=== PATIENT | female | born 1945 | race Caucasian/White ===

== ENCOUNTER 2017-08-05 22:58 | Inpatient (IN) | payer OTHER, MEDICARE ==
[~2017-08-05] VITALS: Ht 165.1 cm; Wt 78.0 kg
[~2017-08-05 22:58] MED LIST: ADVAIR 100-501 EACH INH; AMLODIPINE BESYL5 MG PO; ASPIR 8181 MG PO; BENICAR20 MG PO; CETIRIZINE HCL5 MG PO; CLOPIDOGREL75 MG PO; COMBIVENT RESPIM4 GM IH; ESIDRIX25 MG PO; LEVOTHYROXINE50 MCG PO; METHYLPREDNISOLO4 M1; METOPROLOL SUCC50 MG PO; METOPROLOL TART25 MG PO; PLAVIX75 MG PO; PROAIR HFA INH8.5 GM; XANAX0.25 MG PO
[2017-08-06] MEDS ORDERED: PANTOPRAZOLE 40 MG 10ML VIAL IV STA (00:48)
[2017-08-06] MEDS ORDERED: SODIUM CHLORIDE 0.9% 1000ML 1,000 ML IV STA (00:48)
[2017-08-06] MEDS ORDERED: ONDANSETRON HCL INJ 2 MG/ML VIAL IV STA ×2 (00:48→03:25)
[2017-08-06] MEDS ORDERED: DIATRIZOATE MEGL/DIATRIZOA SOD 30 ML BTL PO ONE (01:01)
[2017-08-06 01:02] LABS: BILIRUBIN,URINE NEGATIVE (NEGATIVE); KETONES,URINE NEGATIVE (NEGATIVE); LEUKOCYTE ESTERASE ,URINE 1+ (NEGATIVE); NITRITE,URINE NEGATIVE (NEGATIVE); PROTEIN,URINE DIPSTICK NEGATIVE (NEGATIVE); URINE UROBILINOGEN 0.2 mg/dL (0.2 - 1)
[2017-08-06 01:03] LABS: CLARITY,URINE CLEAR (CLEAR); COLOR,URINE YELLOW (YELLOW)
[2017-08-06] MEDS ORDERED: ALBUTEROL SULF 0.083% NEB SOLN 3 ML NEB NEB STA (01:22)
[2017-08-06 01:24] LABS: EOSINOPHILS % 0.1 % (0.0-6.0); HEMATOCRIT 29.2 % (34.2-44.1); HEMOGLOBIN 9.7 g/dL (12.0-16.0); LYMPHOCYTES # (AUTO) 0.7 (1.0-3.2); LYMPHOCYTES % 8.6 % (18.0-39.1); MEAN CORPUSCULAR HEMOGLOBIN 23.7 pg (28-32); MEAN CORPUSCULAR HGB CONC 33.2 g/dL (31-35); MEAN CORPUSCULAR VOLUME 71.4 fL (81-99); MONOCYTES # (AUTO) 1.1 (0.2-0.8); MONOCYTES % 13.3 % (4.4-11.3); NEUTROPHILS # (AUTO) 6.6 (2.1-6.9); NEUTROPHILS % 77.5 % (38.7-80.0); PLATELET COUNT 148 x10e3/uL (140-360); RED BLOOD COUNT 4.09 x10e6/uL (3.6-5.1); RED CELL DISTRIBUTION WIDTH 14.6 % (11.7-14.4)
[2017-08-06 01:26] LABS: BACTERIA,URINE RARE /HPF; EPITHELIAL CELLS,URINE MODERATE /LPF; RBC,URINE 0-5 /HPF (0-5)
[2017-08-06] MEDS ORDERED: ALBUTEROL/IPRATROPIUM 3 ML NEB NEB ONE (01:30)
[2017-08-06] MEDS ORDERED: IPRATROPIUM BROMIDE 0.02% 2.5 ML NEB NEB ONE ×2 (01:30)
[2017-08-06 01:43] LABS: INR 0.79; PROTHROMBIN TIME 11.4 seconds (11.9-14.5)
[2017-08-06 01:44] LABS: PARTIAL THROMBOPLASTIN TIME 27.2 seconds (23.8-35.5)
[2017-08-06 01:51] LABS: ALBUMIN 3.4 g/dL (3.5-5.0); ALBUMIN/GLOBULIN RATIO 1.1 (0.8-2.0); CALCIUM 7.3 mg/dL (8.4-10.2); CHOL/HDL RATIO 2.9 (3.0-3.6)
[2017-08-06 02:07] LABS: CREATININE, SERUM 1.64 mg/dL (0.57-1.11); MAGNESIUM 1.7 MG/DL (1.3-2.1); POTASSIUM 3.7 mmol/L (3.5-5.1)
[2017-08-06 02:09] LABS: ANION GAP 14.7 mmol/L (8-16)
[2017-08-06 02:10] LABS: CREATINE KINASE MB 1.2 ng/mL (0.00-5.00); THYROID STIMULATING HORMONE 1.157 uIU/mL (0.350-4.940); TROPONIN I 0.007 ng/mL (0-0.300)
--- NOTE | 2017-08-06 02:56 | Diagnostic Imaging Report ---
EXAM: CT ABDOMEN AND PELVIS without IV CONTRAST DATE: 08/06/2017 12:48 AM Time stamp on Exam: 0232 hours INDICATION: Abdominal pain, diarrhea COMPARISON: None TECHNIQUE: The abdomen and pelvis were scanned using a multidetector helical scanner. Coronal and sagittal reformations were obtained. Routine protocol performed. IV Contrast: None Oral Contrast: None CTDIvol has been reviewed. It is below the limits set by the Radiation Protocol Committee (RPC). FINDINGS: LOWER THORAX: There are a few nonspecific 2 to 3 mm nodules in the right lung base. LIVER: No masses BILIARY: The gallbladder is unremarkable. No ductal dilation. SPLEEN: No masses PANCREAS: No masses ADRENALS: No nodules KIDNEYS: No nephroureterolithiasis or hydronephrosis. Bilateral lobulated renal contours. GI TRACT: No distention, wall thickening or evidence of obstruction. Normal appendix. Small sliding hiatal hernia. VESSELS: Mild atherosclerotic changes without aneurysm. PERITONEUM/RETROPERITONEUM: No free air or fluid LYMPH NODES: No lymphadenopathy REPRODUCTIVE ORGANS: Nonspecific 5 cm right adnexal cyst. BLADDER: Moderately distended. SOFT TISSUES: Small fat-containing umbilical hernia. Bilateral calcified injection granulomas. BONES: No suspicious bone lesions. IMPRESSION: Moderately distended bladder. Incidental 5 cm right ovarian cyst. A nonemergent gynecology consult is recommended for follow-up. Signed by: Dr. Delaney Kramer M.D. on 08/06/2017 2:52 AM
[2017-08-06 03:42] LABS: OCCULT BLOOD STOOL NEGATIVE (NEGATIVE)
[2017-08-06] MEDS: SODIUM CHLORIDE 0.9% 1000ML 1,000 ML IV SCH ×2 (03:55→13:30)
[2017-08-06] MEDS ORDERED: ONDANSETRON HCL INJ 2 MG/ML VIAL IV PRN (04:30)
[2017-08-06] MEDS: ALBUTEROL SULF 0.083% NEB SOLN 3 ML NEB NEB SCH ×2 (05:15→07:40)
[2017-08-06] MEDS: IPRATROPIUM BROMIDE 0.02% 2.5 ML NEB NEB SCH ×2 (05:15→07:40)
[2017-08-06 06:10] VITALS: BP 132/67
[2017-08-06 07:23] VITALS: BP 132/67
[2017-08-06 07:50] VITALS: BP 132/66
[2017-08-06] MEDS ORDERED: ALPRAZOLAM 0.25 MG TAB PO PRN (08:15)
[2017-08-06] MEDS: ASPIRIN 81 MG CHEW TAB PO SCH (08:41)
[2017-08-06] MEDS: METOPROLOL TARTRATE 25 MG TAB PO SCH ×2 (08:41→18:36)
[2017-08-06] MEDS: AMLODIPINE BESYLATE 5 MG TAB PO SCH (08:42)
[2017-08-06] MEDS: LEVOTHYROXINE SODIUM 50 MCG TAB PO SCH (08:42)
[2017-08-06] MEDS: CLOPIDOGREL BISULFATE 75 MG TAB PO SCH (08:42)
--- NOTE | 2017-08-06 08:55 | History and Physical ---
This 71-year-old female comes in with diarrhea. HISTORY OF PRESENT ILLNESS: Ms. Reema Paulino has a history of diarrhea for the last 3 weeks. The patient has a history of COPD, TIA, asthma, hypothyroidism. She comes in with diarrhea for 3 weeks. The patient was recently diagnosed with pancreatitis initially and was given Flagyl. Since then, the patient has been having diarrhea. She has been admitted about 2 times, the last time to another hospital where she was given fluids. The diarrhea stopped, and the patient came out. Once she was out and started eating normally, the patient started with cramping and diarrhea again. Right now, the patient is weak and tired and came in for continuous diarrhea. PAST MEDICAL HISTORY 1. History of hypertension. 2. History of anxiety. 3. History of allergies. 4. History of PAD. 5. History of hypothyroidism. 6. History of COPD. MEDICATIONS: She takes at home: 1. ProAir inhaler q.6 h. 2. Alprazolam 25 as needed. 3. Amlodipine 5 mg daily. 4. Aspirin 81 mg daily. 5. Cetirizine 5 mg daily. 6. 75 mg daily. 7. Advair 1 inhalation b.i.d. 8. 25 mg. 9. Combivent as needed. 10. Levothyroxine 50 mcg daily. 11. Metoprolol 25 mg twice a day. SURGICAL HISTORY: History of lung biopsies and colonoscopies, otherwise no operations. FAMILY HISTORY: Congestive heart failure and diabetes mellitus. ALLERGIES: SEE NURSE'S NOTE. REVIEW OF SYSTEMS: Negative for chest pain. Positive for shortness of breath. Positive for nausea and vomiting. Positive for diarrhea. No constipation, rectal bleeding, hematochezia. No hematemesis either. No diplopia. No blurry vision. Positive for weakness. PHYSICAL EXAMINATION GENERAL: The patient is alert and oriented times 3. Wheezing with the use of inspiratory muscles. VITALS: Temperature 96.2, pulse 75, respirations 21, blood pressure 132/66, pulse oximetry 100% on room air at this time. CVS: S1 and S2 normal, distant heart sounds. LUNGS: Positive for decreased air entry into all lung amaro. Positive for inspiratory wheezes. ABDOMEN: Distended. EXTREMITIES: No clubbing. No cyanosis. No edema. LABORATORY VALUES: White count 8.5, hemoglobin 9.7, hematocrit 29.2. Chemistry: Sodium 121, BUN 18, creatinine 1.67, calcium 7.3, albumin 3.4, LDL 51, cholesterol HDL 2.9. TSH is 1.57. CT of the abdomen shows incidental, 5 cm, right ovarian cyst. Otherwise, moderately distended bladder. ASSESSMENT 1. Chronic diarrhea. 2. Patient has what looks like urinary retention. Will put a urinary catheter in there. 3. Patient also has chronic obstructive pulmonary disease. We will start her on treatments. 4. Chronic diarrhea, which she came in with. We will start the patient on some Carafate and also do stool cultures. Start on a clear liquid diet. 5. Acute kidney injury from chronic diarrhea. Hydration. 6. Patient also has anemia. Will check her iron levels, too. Further recommendations per the clinical course. We will continue to monitor the patient. Job#: [id number]
[2017-08-06] MEDS: SALMETEROL/FLUTICASONE 100/50 INH SCH ×2 (09:00→19:54)
[2017-08-06 10:49] LABS: ALBUMIN 3.2 g/dL (3.5-5.0); ANION GAP 10.4 mmol/L (8-16); CREATININE, SERUM 1.55 mg/dL (0.57-1.11); POTASSIUM 3.4 mmol/L (3.5-5.1)
[2017-08-06] MEDS: SUCRALFATE 1 GM TAB PO SCH ×3 (11:30→21:00)
[2017-08-06 11:46] VITALS: BP 121/61
[2017-08-06] MEDS: ALBUTEROL/IPRATROPIUM 3 ML NEB NEB SCH ×3 (11:55→22:35)
[2017-08-06 16:14] VITALS: BP 130/64
[2017-08-06 20:00] VITALS: BP 142/63
[2017-08-07] VITALS: BP 111/53
[2017-08-07] MEDS: ALBUTEROL/IPRATROPIUM 3 ML NEB NEB SCH ×6 (02:59→23:00)
[2017-08-07] MEDS: SODIUM CHLORIDE 0.9% 1000ML 1,000 ML IV SCH ×2 (03:47→08:17)
[2017-08-07 06:18] VITALS: BP 100/49
[2017-08-07 08:04] VITALS: BP 114/63
[2017-08-07] MEDS: CLOPIDOGREL BISULFATE 75 MG TAB PO SCH (08:16)
[2017-08-07] MEDS: LEVOTHYROXINE SODIUM 50 MCG TAB PO SCH (08:16)
[2017-08-07] MEDS: ASPIRIN 81 MG CHEW TAB PO SCH (08:16)
[2017-08-07] MEDS: LACTOBACILLUS ACIDOPHILUS CAPSULE PO SCH ×2 (08:16→16:23)
[2017-08-07] MEDS: SUCRALFATE 1 GM TAB PO SCH ×4 (08:16→20:44)
[2017-08-07] MEDS: AMLODIPINE BESYLATE 5 MG TAB PO SCH (08:16)
[2017-08-07 08:32] LABS: HEMATOCRIT 27.6 % (34.2-44.1); LYMPHOCYTES # (AUTO) 0.5 (1.0-3.2); LYMPHOCYTES % 8.6 % (18.0-39.1); MEAN CORPUSCULAR HEMOGLOBIN 24.5 pg (28-32); MEAN CORPUSCULAR HGB CONC 32.6 g/dL (31-35); MONOCYTES # (AUTO) 0.6 (0.2-0.8); MONOCYTES % 11.5 % (4.4-11.3); NEUTROPHILS # (AUTO) 4.2 (2.1-6.9); NEUTROPHILS % 79.3 % (38.7-80.0); PLATELET COUNT 137 x10e3/uL (140-360); RED BLOOD COUNT 3.67 x10e6/uL (3.6-5.1); RED CELL DISTRIBUTION WIDTH 14.8 % (11.7-14.4)
[2017-08-07 08:34] LABS: MEAN CORPUSCULAR VOLUME 75.2 fL (81-99)
[2017-08-07] MEDS: METOPROLOL TARTRATE 25 MG TAB PO SCH ×2 (08:34→16:21)
[2017-08-07 08:49] LABS: CALCIUM 7.3 mg/dL (8.4-10.2); CREATININE, SERUM 1.55 mg/dL (0.57-1.11)
[2017-08-07] MEDS: SALMETEROL/FLUTICASONE 100/50 INH SCH ×2 (09:05→19:24)
[2017-08-07 09:14] LABS: % IRON SATURATION 5 % (15-50); IRON 18 ug/dL (50-170); TOTAL IRON BINDING CAPACITY 337 ug/dL (261-478); TRANSFERRIN 241 mg/dL (180-382)
[2017-08-07 16:04] VITALS: BP 99/49
[2017-08-07 20:00] VITALS: BP 134/63
[2017-08-07] MEDS ORDERED: PEG (High)/E-LYTE SOLN 4,000 ML BTL PO ONE (20:00)
[2017-08-08] VITALS: BP 111/54
[2017-08-08] MEDS ORDERED: CITRATE OF MAGNESIA 300ML BOTTLE PO ONE (02:15)
[2017-08-08] MEDS: ALBUTEROL/IPRATROPIUM 3 ML NEB NEB SCH ×6 (02:38→22:10)
[2017-08-08] MEDS: SODIUM CHLORIDE 0.9% 1000ML 1,000 ML IV SCH ×3 (03:00→14:08)
[2017-08-08 04:09] VITALS: BP 125/59
[2017-08-08 07:16] LABS: HEMATOCRIT 24.6 % (34.2-44.1); LYMPHOCYTES # (AUTO) 0.5 (1.0-3.2); LYMPHOCYTES % 20.4 % (18.0-39.1); MEAN CORPUSCULAR HEMOGLOBIN 24.2 pg (28-32); MEAN CORPUSCULAR HGB CONC 32.5 g/dL (31-35); MEAN CORPUSCULAR VOLUME 74.5 fL (81-99); MONOCYTES # (AUTO) 0.4 (0.2-0.8); MONOCYTES % 19.5 % (4.4-11.3); NEUTROPHILS # (AUTO) 1.4 (2.1-6.9); NEUTROPHILS % 59.7 % (38.7-80.0); PLATELET COUNT 104 x10e3/uL (140-360); RED CELL DISTRIBUTION WIDTH 15.2 % (11.7-14.4)
[2017-08-08] MEDS: SUCRALFATE 1 GM TAB PO SCH ×4 (07:30→21:06)
[2017-08-08] MEDS: SALMETEROL/FLUTICASONE 100/50 INH SCH ×2 (07:40→19:53)
[2017-08-08 07:54] LABS: ANION GAP 12.5 mmol/L (8-16); CALCIUM 7.5 mg/dL (8.4-10.2); CREATININE, SERUM 1.29 mg/dL (0.57-1.11); POTASSIUM 3.5 mmol/L (3.5-5.1)
[2017-08-08 08:27] VITALS: BP 127/62
[2017-08-08] MEDS: LEVOTHYROXINE SODIUM 50 MCG TAB PO SCH (09:00)
[2017-08-08] MEDS: LACTOBACILLUS ACIDOPHILUS CAPSULE PO SCH ×2 (09:00→17:33)
[2017-08-08] MEDS: ASPIRIN 81 MG CHEW TAB PO SCH (09:00)
[2017-08-08] MEDS: CLOPIDOGREL BISULFATE 75 MG TAB PO SCH (09:00)
[2017-08-08] MEDS: AMLODIPINE BESYLATE 5 MG TAB PO SCH (09:12)
[2017-08-08] MEDS: METOPROLOL TARTRATE 25 MG TAB PO SCH ×2 (09:12→17:43)
[2017-08-08 12:25] VITALS: BP 108/76
[2017-08-08 13:31] LABS: C DIFFICILE TOXIN A&B AMP PROB NEGATIVE (NEGATIVE)
[2017-08-08] MEDS ORDERED: PROPOFOL IV EMULSION 10 MG/ML 50 ML VIAL ONE (18:48)
[2017-08-08] MEDS ORDERED: LIDOCAINE HCL 2% LOCAL INJ 5 ML SDV VIAL INJ ONE (18:48)
[2017-08-08] MEDS ORDERED: HYOSCYAMINE SULFATE 0.5 MG/ML AMP ONE (18:48)
[2017-08-08] MEDS ORDERED: FENTANYL CITRATE/PF 100MCG/2 ML INJ ONE (19:15)
[2017-08-08 19:30] VITALS: BP 113/61
[2017-08-08] MEDS: DICYCLOMINE HCL 10 MG CAP PO SCH (21:06)
[2017-08-09 00:25] VITALS: BP 143/67
[2017-08-09] MEDS: ALBUTEROL/IPRATROPIUM 3 ML NEB NEB SCH ×5 (01:15→15:50)
[2017-08-09] MEDS: SODIUM CHLORIDE 0.9% 1000ML 1,000 ML IV SCH ×2 (02:10→10:02)
[2017-08-09 04:20] VITALS: BP 149/64
[2017-08-09] MEDS: SALMETEROL/FLUTICASONE 100/50 INH SCH (06:55)
[2017-08-09 07:25] LABS: HEMATOCRIT 23.7 % (34.2-44.1); LYMPHOCYTES # (AUTO) 0.4 (1.0-3.2); LYMPHOCYTES % 19.8 % (18.0-39.1); MEAN CORPUSCULAR HEMOGLOBIN 24.8 pg (28-32); MEAN CORPUSCULAR HGB CONC 32.1 g/dL (31-35); MEAN CORPUSCULAR VOLUME 77.2 fL (81-99); MONOCYTES # (AUTO) 0.2 (0.2-0.8); MONOCYTES % 11.2 % (4.4-11.3); NEUTROPHILS # (AUTO) 1.4 (2.1-6.9); NEUTROPHILS % 68.5 % (38.7-80.0); PLATELET COUNT 87 x10e3/uL (140-360); RED BLOOD COUNT 3.07 x10e6/uL (3.6-5.1); RED CELL DISTRIBUTION WIDTH 15.5 % (11.7-14.4)
[2017-08-09 07:40] LABS: HEMOGLOBIN 7.6 g/dL (12.0-16.0)
[2017-08-09 07:50] LABS: ANION GAP 8.8 mmol/L (8-16); CALCIUM 7.4 mg/dL (8.4-10.2); CREATININE, SERUM 1.06 mg/dL (0.57-1.11); POTASSIUM 3.8 mmol/L (3.5-5.1)
[2017-08-09 07:55] VITALS: BP 141/69
[2017-08-09] MEDS ORDERED: IRON SUCROSE 100 MG in SODIUM CHLORIDE 0.9% 100 ML 100 ML IV SCH ×2 (08:15→08:30)
[2017-08-09 08:35] LABS: LYMPHOCYTES % (MANUAL) 12 % (19-48); MONOCYTES % (MANUAL) 16 % (3.4-9.0); NEUTROPHILS % (MANUAL) 68 % (40-74)
[2017-08-09 08:36] LABS: ANISOCYTOSIS SLIGHT; HYPOCHROMASIA SLIGHT; PLATELET ESTIMATE MARKEDLY DECREASED; PLATELET MORPHOLOGY COMMENT FEW LARGE; RBC MORPHOLOGY COMMENT NORMAL
[2017-08-09] MEDS ORDERED: POLYSACCARIDE IRON COMPLEX 150 MG CAP PO SCH ×2 (09:00)
[2017-08-09] MEDS: POLYSACCARIDE IRON COMPLEX 150 MG CAP PO SCH ×2 (09:00→17:00)
[2017-08-09] MEDS: SUCRALFATE 1 GM TAB PO SCH ×4 (09:07→21:38)
[2017-08-09] MEDS: ASPIRIN 81 MG CHEW TAB PO SCH (09:07)
[2017-08-09] MEDS: DICYCLOMINE HCL 10 MG CAP PO SCH ×3 (09:07→21:38)
[2017-08-09] MEDS: METOPROLOL TARTRATE 25 MG TAB PO SCH ×2 (09:08→17:23)
[2017-08-09] MEDS: AMLODIPINE BESYLATE 5 MG TAB PO SCH (09:08)
[2017-08-09] MEDS: LEVOTHYROXINE SODIUM 50 MCG TAB PO SCH (09:08)
[2017-08-09] MEDS: CLOPIDOGREL BISULFATE 75 MG TAB PO SCH (09:08)
[2017-08-09] MEDS: LACTOBACILLUS ACIDOPHILUS CAPSULE PO SCH ×2 (09:10→17:23)
[2017-08-09 11:53] VITALS: BP 166/75
[2017-08-09 12:42] LABS: WBC,FECAL (FECAL LACTOFERRIN) POSITIVE (NEGATIVE)
[2017-08-09 13:43] LABS: C DIFFICILE TOXIN A&B AMP PROB NEGATIVE (NEGATIVE)
[2017-08-09 16:10] VITALS: BP 140/71
[2017-08-09] MEDS: FLUTICASONE PROPIONATE NASAL SPRAY NS SCH (17:23)
[2017-08-09] MEDS ORDERED: IRON SUCROSE 100 MG in SODIUM CHLORIDE 0.9% 100 ML 100 ML IV NR (18:00)
[2017-08-09 20:15] VITALS: BP 146/68
[2017-08-10 00:01] VITALS: BP 142/72
[2017-08-10] MEDS: ALBUTEROL/IPRATROPIUM 3 ML NEB NEB SCH ×6 (04:30→23:23)
[2017-08-10 05:09] VITALS: BP 143/68
[2017-08-10] MEDS ORDERED: METHYLPREDNISOLONE SOD SUCC 125 MG/2ML VIAL IV SCH ×2 (06:45→07:15)
[2017-08-10] MEDS: SALMETEROL/FLUTICASONE 100/50 INH SCH ×2 (07:22→19:31)
[2017-08-10 07:57] LABS: HEMATOCRIT 25.6 % (34.2-44.1); HEMOGLOBIN 8.2 g/dL (12.0-16.0); LYMPHOCYTES # (AUTO) 0.3 (1.0-3.2); LYMPHOCYTES % 8.6 % (18.0-39.1); MEAN CORPUSCULAR HEMOGLOBIN 24.2 pg (28-32); MEAN CORPUSCULAR VOLUME 75.5 fL (81-99); MONOCYTES # (AUTO) 0.4 (0.2-0.8); MONOCYTES % 11.9 % (4.4-11.3); NEUTROPHILS # (AUTO) 2.9 (2.1-6.9); NEUTROPHILS % 78.7 % (38.7-80.0); PLATELET COUNT 107 x10e3/uL (140-360); RED BLOOD COUNT 3.39 x10e6/uL (3.6-5.1); RED CELL DISTRIBUTION WIDTH 15.5 % (11.7-14.4)
[2017-08-10 08:00] VITALS: BP 143/55
[2017-08-10 08:03] LABS: ANION GAP 12.8 mmol/L (8-16); CALCIUM 7.9 mg/dL (8.4-10.2); POTASSIUM 3.8 mmol/L (3.5-5.1)
[2017-08-10] MEDS: SUCRALFATE 1 GM TAB PO SCH ×4 (08:30→21:14)
[2017-08-10] MEDS: ASPIRIN 81 MG CHEW TAB PO SCH (09:00)
[2017-08-10] MEDS: DICYCLOMINE HCL 10 MG CAP PO SCH ×3 (09:00→21:14)
[2017-08-10] MEDS: AMLODIPINE BESYLATE 5 MG TAB PO SCH (09:00)
[2017-08-10] MEDS: METOPROLOL TARTRATE 25 MG TAB PO SCH ×2 (09:00→17:00)
[2017-08-10] MEDS: FLUTICASONE PROPIONATE NASAL SPRAY NS SCH ×2 (09:00→17:00)
[2017-08-10] MEDS: POLYSACCARIDE IRON COMPLEX 150 MG CAP PO SCH ×2 (09:00→17:00)
[2017-08-10] MEDS: LEVOTHYROXINE SODIUM 50 MCG TAB PO SCH (09:00)
[2017-08-10] MEDS: CLOPIDOGREL BISULFATE 75 MG TAB PO SCH (09:00)
[2017-08-10] MEDS: LACTOBACILLUS ACIDOPHILUS CAPSULE PO SCH ×2 (09:00→17:00)
--- NOTE | 2017-08-10 11:25 | Diagnostic Imaging Report ---
PROCEDURE: A single AP view of the chest. COMPARISON: [facility], , CHEST SINGLE (PORTABLE), 07/25/2016, 22:44. INDICATIONS: SOB FINDINGS: Lines/tubes: None. Lungs: Diffuse coarsening of the pulmonary interstitium particularly in the lower lobes again observed. Hyperinflation of the upper lobes again suggestive of emphysema. There is no evidence of pneumonia or pulmonary edema. Pleura: There is no pneumothorax. Blunting of the left lateral costophrenic sulcus suggestive of a small volume pleural effusion. Heart and mediastinum: The heart and the mediastinum are unremarkable. Bones: No acute bony abnormality. IMPRESSION: 1. No acute cardiopulmonary disease. Steven Zhu M.D. Dictated by: Steven Zhu M.D. on 08/10/2017 at 11:32 Electronically approved by: Steven Zhu M.D. on 08/10/2017 at 11:32
[2017-08-10 12:00] VITALS: BP 142/66
[2017-08-10] MEDS: METHYLPREDNISOLONE SOD SUCC 125 MG/2ML VIAL IV SCH ×2 (13:04→18:00)
[2017-08-10 16:00] VITALS: BP 139/64
--- NOTE | 2017-08-10 17:07 | Operative Report ---
DATE OF PROCEDURE: August 08, 2017 REFERRING PHYSICIAN: Dr. Meghann Howell. PROCEDURE PERFORMED: Colonoscopy and polypectomy. INDICATIONS FOR COLONOSCOPY: Chronic diarrhea. MEDICATION: Patient was done under MAC. Please see anesthesiologist's note. PROCEDURE: With patient in left lateral decubitus position, flexible fiberoptic Olympus colonoscope was inserted into the rectum with ease and advanced all the way to the cecum. A minute polyp was noted in the cecum that was hot biopsied. The ileocecal valve was intubated and the scope was advanced into the terminal ileum. Biopsies were obtained. The scope was then withdrawn back into the colon. It was then withdrawn slowly. Mucosa overlying the ascending and transverse appeared to be within normal limits. Patchy mild inflammatory changes were noted in the left colon and random biopsies were obtained. Some diverticular disease was noted in the sigmoid colon. The scope was then retroflexed into the distal rectum and internal hemorrhoids were noted, none of which was actively bleeding. The scope was then straightened out. The rectosigmoid area as well as the distal rectal area were decompressed. The scope subsequently withdrawn after securing an adequate stool specimen that was sent for the appropriate stool studies. Patient tolerated the procedure well. IMPRESSION: 1. Cecal polyp, removed per the cold biopsy forceps. 2. Diverticulosis, mild. 3. Patchy mild left-sided colitis. 4. Proctitis, mild. 5. Internal hemorrhoids, none actively bleeding. PLAN: Follow up histology. Follow up stool studies. Initiate Bentyl 20 mg one p.o. t.i.d. Patient will need a followup colonoscopy in 3 years. Job#: [id number] cc:MEGHANN HOWELL MD
[2017-08-10 20:55] VITALS: BP 131/61
[2017-08-10] MEDS: SODIUM CHLORIDE 0.9% 1000ML 1,000 ML IV SCH (21:15)
[2017-08-11] MEDS: METHYLPREDNISOLONE SOD SUCC 125 MG/2ML VIAL IV SCH ×3 (00:42→12:00)
[2017-08-11 00:44] VITALS: BP 138/63
[2017-08-11] MEDS: ALBUTEROL/IPRATROPIUM 3 ML NEB NEB SCH ×4 (03:30→15:00)
[2017-08-11 05:31] VITALS: BP 136/65
[2017-08-11 07:18] LABS: ANION GAP 11.9 mmol/L (8-16); CALCIUM 9.1 mg/dL (8.4-10.2); CREATININE, SERUM 1.02 mg/dL (0.57-1.11); POTASSIUM 3.9 mmol/L (3.5-5.1)
[2017-08-11] MEDS: SUCRALFATE 1 GM TAB PO SCH ×2 (07:30→12:30)
[2017-08-11 08:09] VITALS: BP 150/72
[2017-08-11] MEDS: FLUTICASONE PROPIONATE NASAL SPRAY NS SCH ×2 (09:00→17:00)
[2017-08-11] MEDS: ASPIRIN 81 MG CHEW TAB PO SCH (09:45)
[2017-08-11] MEDS: METOPROLOL TARTRATE 25 MG TAB PO SCH ×2 (09:45→17:00)
[2017-08-11] MEDS: CLOPIDOGREL BISULFATE 75 MG TAB PO SCH (09:45)
[2017-08-11] MEDS: LACTOBACILLUS ACIDOPHILUS CAPSULE PO SCH ×2 (09:45→17:00)
[2017-08-11] MEDS: AMLODIPINE BESYLATE 5 MG TAB PO SCH (09:45)
[2017-08-11] MEDS: LEVOTHYROXINE SODIUM 50 MCG TAB PO SCH (09:45)
[2017-08-11] MEDS: DICYCLOMINE HCL 10 MG CAP PO SCH ×2 (09:45→15:48)
[2017-08-11] MEDS: POLYSACCARIDE IRON COMPLEX 150 MG CAP PO SCH ×2 (09:45→17:00)
[2017-08-11] MEDS: SALMETEROL/FLUTICASONE 100/50 INH SCH (11:05)
[2017-08-11 11:40] VITALS: BP 159/75
[2017-08-11 15:38] VITALS: BP 155/75
[2017-08-11] MEDS ORDERED: FERROUS SULFAT325 MG PO (16:24)
[2017-08-11] MEDS ORDERED: PREDNISONE20 MG PO (16:25)
[2017-08-11] MEDS ORDERED: SUCRALFATE1 GM PO (16:26)
[2017-09-07] MEDS ORDERED: ATORVASTATIN CA10 MG PO (10:30)
--- NOTE | 2017-09-25 15:05 | Discharge Summary ---
Patient came in with diarrhea. Consult with GI was done. She also has COPD and SAMUEL. The acute kidney injury got better with fluids. For COPD, she was continued on albuterol and Atrovent. Consult with Dr. Walter Wick was done. Colonoscopy and possible EGD were scheduled. Dr. Walter Wick did a colonoscopy that showed a cecal polyp which was removed. Patchy mild left-sided colitis and diverticulosis were noted. For COPD, we continued the patient on medications. Blood studies were negative for enteric pathogen. Also, biopsies were negative for colitis. She was started on clear liquid diet and then we advanced her slowly. She was doing very well. Once she was tolerating her diet, the patient was discharged home. FINAL DIAGNOSES 1. Colitis. 2. Acute kidney injury, resolved. 3. Chronic obstructive pulmonary disease exacerbation. 4. Anemia. The plan is to follow up as an outpatient, and we will continue doing that. For further information, look in the chart. For discharge medications, look in the medical reconciliation sheet. MEGHANN HOWELL MD Job#: [id number]
== END 2017-08-11 17:50 | disposition home or self-care (01) | DRG 683 ==
LOC: ER 22:58 → ERHOLD 08-06 04:28 → MED/SURG3 08-06 05:05
PROVIDERS: ADMIT Family Medicine; ATTEND Family Medicine
PROC: 0DBP8ZX Excision of Rectum, Via Natural or Artificial Opening Endoscopic, Diagnostic (ICD-10-PCS; 2017-08-08)
PROC: 0DBG8ZX Excision of Left Large Intestine, Via Natural or Artificial Opening Endoscopic, Diagnostic (ICD-10-PCS; 2017-08-08)
PROC: 0DBH8ZX Excision of Cecum, Via Natural or Artificial Opening Endoscopic, Diagnostic (ICD-10-PCS; principal; 2017-08-08 14:00)
PROC: 0DBB8ZX Excision of Ileum, Via Natural or Artificial Opening Endoscopic, Diagnostic (ICD-10-PCS; 2017-08-08 14:00)
DX: N17.9 Acute kidney failure, unspecified (principal); E87.1 Hypo-osmolality and hyponatremia; K52.9 Noninfective gastroenteritis and colitis, unspecified; E86.0 Dehydration; R33.9 Retention of urine, unspecified; I12.9 Hypertensive chronic kidney disease with stage 1 through stage 4 chronic kidney disease, or unspecified chronic kidney disease; N18.9 Chronic kidney disease, unspecified; K64.8 Other hemorrhoids; D12.0 Benign neoplasm of cecum; K57.30 Diverticulosis of large intestine without perforation or abscess without bleeding; K62.89 Other specified diseases of anus and rectum; E03.9 Hypothyroidism, unspecified; D50.9 Iron deficiency anemia, unspecified; Z87.891 Personal history of nicotine dependence; Z28.21 Immunization not carried out because of patient refusal; Z86.73 Personal history of transient ischemic attack (TIA), and cerebral infarction without residual deficits; Z79.82 Long term (current) use of aspirin; Z79.02 Long term (current) use of antithrombotics/antiplatelets
CPT/HCPCS: 36415; 45380; 45384; 71010; 74176; 80048; 80053; 80061; 81001; 82150; 82270; 82550; 82553; 82948; 83540; 83630; 83690; 83735; 83935; 83993; 84300; 84443; 84466; 84484; 85025; 85610; 85730; 87045; 87086; 87177; 87328; 87493; 88305; 94640; 96360; 96374; 96375; 99284; J1756; J1980; J2001; J2405; J2930; J7030

== ENCOUNTER → 2017-09-07 | Day surgery (SDC) | payer OTHER ==
[2017-08-30 16:18] LABS: BASOPHILS % 0.1 % (0.0-1.0); HEMATOCRIT 32.5 % (34.2-44.1); HEMOGLOBIN 10.3 g/dL (12.0-16.0); LYMPHOCYTES # (AUTO) 0.9 (1.0-3.2); LYMPHOCYTES % 8.1 % (18.0-39.1); MEAN CORPUSCULAR HEMOGLOBIN 25.4 pg (28-32); MEAN CORPUSCULAR HGB CONC 31.7 g/dL (31-35); MONOCYTES # (AUTO) 0.8 (0.2-0.8); NEUTROPHILS # (AUTO) 9.8 (2.1-6.9); NEUTROPHILS % 83.9 % (38.7-80.0); PLATELET COUNT 140 x10e3/uL (140-360); RED BLOOD COUNT 4.06 x10e6/uL (3.6-5.1); RED CELL DISTRIBUTION WIDTH 17.1 % (11.7-14.4)
[~2017-09-07] MED LIST changes: +ATORVASTATIN CA10 MG PO; +FERROUS SULFAT325 MG PO; +MIDAZOLAM HCL 2 MG/2 ML VIAL ONE; +PREDNISONE20 MG PO; +PROPOFOL IV EMULSION 10 MG/ML 50 ML VIAL ONE; +SUCRALFATE1 GM PO
--- NOTE | 2017-09-07 14:38 | Operative Report ---
DATE OF PROCEDURE: September 07, 2017 REFERRING PHYSICIAN: Dr. Meghann Howell PROCEDURE PERFORMED: Esophagogastroduodenoscopy with biopsies. INDICATIONS FOR EGD: Iron deficiency anemia. MEDICATION: Patient was done under MAC. Please see anesthesiologist's note. PROCEDURE: With the patient in the left lateral decubitus position, the flexible fiberoptic Olympus gastroscope was introduced into the esophagus under direct visualization without any difficulty. There was some patchy erythema noted in the distal esophagus. The scope was then advanced with ease into the stomach traversing a small hiatal hernia. The mucosa overlying the antrum revealed some patchy intense erythema and low-grade to moderate edema, and biopsies were obtained and sent to stain for H. pylori. There was an ulcerated peripyloric nodule noted and that was biopsied. The pylorus was intubated with ease. The scope was advanced all the way to the 2nd portion of the duodenum. The scope was then withdrawn slowly. Mucosa overlying the proximal 2nd portion and the duodenal bulb grossly appeared to be within normal limits. The scope was then withdrawn back into the stomach and retroflexed. The mucosa overlying the fundus and the cardia other than for a couple of polypoid lesions appeared to be within normal limits. The scope was then straightened out. Several biopsies were obtained of the aforementioned ulcerated polypoid lesions and the body of the stomach. The scope was subsequently withdrawn. Patient tolerated the procedure well. IMPRESSION 1. Distal esophagitis. 2. Small hiatal hernia. 3. Gastritis, antrum, biopsied. Biopsies sent to stain for Helicobacter pylori. 4. Multiple polypoid lesions, body, some ulcerated and friable, biopsies obtained. 5. Peripyloric ulcerated nodule, biopsied. PLAN: Follow up histology. Initiate Protonix 40 mg 1 p.o. q.a.m. a.c. and Carafate 1 g p.o. a.c. t.i.d. and at bedtime. Job#: [id number] RI cc:MEGHANN HOWELL MD
== END | disposition home or self-care (01) ==
LOC: OR 10:00
PROVIDERS: ATTEND Internal Medicine Gastroenterology
DX: D50.9 Iron deficiency anemia, unspecified (principal); D12.0 Benign neoplasm of cecum; K31.7 Polyp of stomach and duodenum; K29.70 Gastritis, unspecified, without bleeding; K25.9 Gastric ulcer, unspecified as acute or chronic, without hemorrhage or perforation; K20.9 Esophagitis, unspecified; K44.9 Diaphragmatic hernia without obstruction or gangrene; K52.89 Other specified noninfective gastroenteritis and colitis; K57.90 Diverticulosis of intestine, part unspecified, without perforation or abscess without bleeding; K64.8 Other hemorrhoids; E03.9 Hypothyroidism, unspecified; I12.9 Hypertensive chronic kidney disease with stage 1 through stage 4 chronic kidney disease, or unspecified chronic kidney disease; N18.9 Chronic kidney disease, unspecified; J44.9 Chronic obstructive pulmonary disease, unspecified; I25.2 Old myocardial infarction; Z01.812 Encounter for preprocedural laboratory examination; Z79.02 Long term (current) use of antithrombotics/antiplatelets; Z79.82 Long term (current) use of aspirin; Z68.28 Body mass index [BMI] 28.0-28.9, adult; Z86.73 Personal history of transient ischemic attack (TIA), and cerebral infarction without residual deficits; Z86.19 Personal history of other infectious and parasitic diseases; Z87.891 Personal history of nicotine dependence
CPT/HCPCS: 36415; 43239; 85025; J2250

== ENCOUNTER → 2021-07-20 | Day surgery (SDC) | payer MEDICARE ==
[2021-07-17 08:52] LABS: BASOPHILS % 0.1 % (0.0-1.0); HEMATOCRIT 34.5 % (34.2-44.1); HEMOGLOBIN 11.2 g/dL (12.0-16.0); LYMPHOCYTES # (AUTO) 0.7 (1.0-3.2); LYMPHOCYTES % 9.4 % (18.0-39.1); MEAN CORPUSCULAR HEMOGLOBIN 29.9 pg (28-32); MEAN CORPUSCULAR HGB CONC 32.5 g/dL (31-35); MONOCYTES # (AUTO) 0.6 (0.2-0.8); MONOCYTES % 7.2 % (4.4-11.3); NEUTROPHILS # (AUTO) 6.6 (2.1-6.9); NEUTROPHILS % 82.8 % (38.7-80.0); PLATELET COUNT 185 x10e3/uL (140-360); RED BLOOD COUNT 3.75 x10e6/uL (3.6-5.1); RED CELL DISTRIBUTION WIDTH 13.1 % (11.7-14.4)
[2021-07-17 09:36] LABS: CALCIUM 8.3 mg/dL (8.4-10.2); CREATININE, SERUM 1.4 mg/dL (0.57-1.11)
[2021-07-17 09:37] LABS: INR 0.85; PROTHROMBIN TIME 12.3 seconds (11.9-14.5)
[~2021-07-20] MED LIST changes: +ADVAIR 250-501 EACH INH; +ALBUTEROL1.25 MG/3 NEB; +ATIVAN0.5 MG PO; +COMBIVENT RESPIMAT INH; +FENTANYL CITRATE/PF 100MCG/2 ML INJ ONE; +HYDRALAZINE HCL25 MG PO; +LIDOCAINE HCL 2% LOCAL INJ 5 ML SDV VIAL INJ ONE; -MIDAZOLAM HCL 2 MG/2 ML VIAL ONE; +PROPOFOL IV EMULSION 10 MG/ML 20 ML VIAL ONE; -PROPOFOL IV EMULSION 10 MG/ML 50 ML VIAL ONE; +SERTRALINE HCL25 MG PO; +SPIRIVA RESPIMAT INH; +WAL-ITIN10 MG PO
[2021-07-20 10:20] VITALS: BP 150/62
== END | disposition home or self-care (01) ==
LOC: OR 06:57
PROVIDERS: ATTEND Internal Medicine Gastroenterology
DX: K92.1 Melena (principal); Z86.010 Personal history of colon polyps; K59.09 Other constipation; K64.8 Other hemorrhoids; J44.9 Chronic obstructive pulmonary disease, unspecified; I25.10 Atherosclerotic heart disease of native coronary artery without angina pectoris; E03.9 Hypothyroidism, unspecified; I12.9 Hypertensive chronic kidney disease with stage 1 through stage 4 chronic kidney disease, or unspecified chronic kidney disease; N18.9 Chronic kidney disease, unspecified; F41.9 Anxiety disorder, unspecified; Z88.0 Allergy status to penicillin; Z20.822 Contact with and (suspected) exposure to COVID-19; Z01.810 Encounter for preprocedural cardiovascular examination; Z98.61 Coronary angioplasty status; Z86.73 Personal history of transient ischemic attack (TIA), and cerebral infarction without residual deficits; Z87.891 Personal history of nicotine dependence
CPT/HCPCS: 36415; 45378; 80048; 85025; 85610; 85730; 93005; J2001; J2704; J3010; U0002

== ENCOUNTER 2022-05-04 09:58 | Inpatient (IN) | payer MEDICARE ==
[~2022-05-04] VITALS: Ht 165.1 cm; Wt 78.0 kg
[~2022-05-04 09:58] MED LIST changes: -FENTANYL CITRATE/PF 100MCG/2 ML INJ ONE; -LIDOCAINE HCL 2% LOCAL INJ 5 ML SDV VIAL INJ ONE; -PROPOFOL IV EMULSION 10 MG/ML 20 ML VIAL ONE
[2022-05-04] MEDS ORDERED: ALBUTEROL/IPRATROPIUM 3 ML NEB NEB ONE (10:15)
[2022-05-04 10:24] LABS: BASOPHILS % 0.1 % (0.0-1.0); HEMATOCRIT 31.8 % (34.2-44.1); HEMOGLOBIN 10.6 g/dL (12.0-16.0); LYMPHOCYTES # (AUTO) 1.2 (1.0-3.2); LYMPHOCYTES % 10.5 % (18.0-39.1); MEAN CORPUSCULAR HEMOGLOBIN 29.4 pg (28-32); MEAN CORPUSCULAR HGB CONC 33.3 g/dL (31-35); MEAN CORPUSCULAR VOLUME 88.3 fL (81-99); MONOCYTES # (AUTO) 0.8 (0.2-0.8); MONOCYTES % 7.3 % (4.4-11.3); NEUTROPHILS # (AUTO) 8.9 (2.1-6.9); NEUTROPHILS % 80.7 % (38.7-80.0); PLATELET COUNT 211 x10e3/uL (140-360); RED CELL DISTRIBUTION WIDTH 13.4 % (11.7-14.4)
[2022-05-04 10:59] LABS: ALANINE AMINOTRANSFERASE 8 IU/L (0-55); ALBUMIN 3.5 g/dL (3.5-5.0); ALBUMIN/GLOBULIN RATIO 0.9 (0.8-2.0); ALKALINE PHOSPHATASE 58 IU/L (40-150); ANION GAP 13.6 mmol/L (8-16); BLOOD UREA NITROGEN 18 mg/dL (7-26); BUN/CREATININE RATIO 17 (6-25); CALCIUM 8.2 mg/dL (8.4-10.2); CARBON DIOXIDE 23 mmol/L (22-29); CHLORIDE 108 mmol/L (98-107); CREATININE, SERUM 1.09 mg/dL (0.57-1.11); GLUCOSE 115 mg/dL (74-118); POTASSIUM 3.6 mmol/L (3.5-5.1); SODIUM 141 mmol/L (136-145)
[2022-05-04] MEDS ORDERED: SODIUM CHLORIDE 0.9% 1000ML 1,000 ML IV ONE (11:30)
[2022-05-04] MEDS ORDERED: CEFTRIAXONE 1 GM VIAL IV SCH (11:30)
[2022-05-04] MEDS ORDERED: ONDANSETRON HCL INJ 2MG/ML 2ML 2 MG/ML VIAL IV PRN (11:45)
[2022-05-04] MEDS ORDERED: SODIUM CHLORIDE FLUSH 10 ML SYR INJ PRN (11:45)
[2022-05-04] MEDS ORDERED: METOPROLOL TART50 MG PO (19:47)
[2022-05-04] MEDS ORDERED: SERTRALINE HCL25 MG PO (19:47)
[2022-05-04] MEDS ORDERED: COMBIVENT RESPIM4 GM INH (19:47)
[2022-05-04] MEDS ORDERED: SPIRIVA RESPIMAT4 GM (19:47)
[2022-05-04] MEDS ORDERED: FLUTICASONE PRO16 GM INH (19:47)
[2022-05-04] MEDS ORDERED: FLUTICASONE-SA1 EAC1 INH (19:47)
[2022-05-04 19:49] VITALS: BP 134/89
[2022-05-04 19:51] VITALS: BP 134/89
[2022-05-04 19:55] VITALS: BP 134/89
[2022-05-04] MEDS: SERTRALINE HCL 50 MG TAB PO SCH (21:00)
[2022-05-04] MEDS: METOPROLOL TARTRATE 50 MG TAB PO SCH (21:09)
[2022-05-04] MEDS: SALMETEROL/FLUTICASONE 250/50 INH SCH (21:11)
[2022-05-04] MEDS: FLUTICASONE PROPIONATE NASAL SPRAY NS SCH (21:11)
[2022-05-04] MEDS ORDERED: LORAZEPAM 0.5 MG TAB PO PRN (21:15)
[2022-05-04] MEDS: ATORVASTATIN 10 MG TAB PO SCH (21:21)
[2022-05-05] VITALS (7 sets, daily range): BP systolic 130–161; BP diastolic 62–84
[2022-05-05] MEDS: ALBUTEROL/IPRATROPIUM 3 ML NEB NEB SCH ×4 (00:05→18:50)
[2022-05-05] MEDS: SERTRALINE HCL 50 MG TAB PO SCH ×2 (01:29→21:00)
[2022-05-05 04:57] LABS: BASOPHILS % 0.2 % (0.0-1.0); HEMATOCRIT 28.3 % (34.2-44.1); HEMOGLOBIN 9.7 g/dL (12.0-16.0); LYMPHOCYTES # (AUTO) 0.3 (1.0-3.2); LYMPHOCYTES % 4.3 % (18.0-39.1); MEAN CORPUSCULAR HEMOGLOBIN 29.2 pg (28-32); MEAN CORPUSCULAR HGB CONC 34.3 g/dL (31-35); MEAN CORPUSCULAR VOLUME 85.2 fL (81-99); MONOCYTES # (AUTO) 0.1 (0.2-0.8); MONOCYTES % 2.1 % (4.4-11.3); NEUTROPHILS # (AUTO) 5.8 (2.1-6.9); NEUTROPHILS % 92.1 % (38.7-80.0); PLATELET COUNT 175 x10e3/uL (140-360); RED BLOOD COUNT 3.32 x10e6/uL (3.6-5.1); RED CELL DISTRIBUTION WIDTH 13.5 % (11.7-14.4)
[2022-05-05 05:17] LABS: ANION GAP 15.2 mmol/L (8-16); CALCIUM 8.2 mg/dL (8.4-10.2); CREATININE, SERUM 1.04 mg/dL (0.57-1.11); POTASSIUM 4.2 mmol/L (3.5-5.1)
[2022-05-05] MEDS ORDERED: CEFTRIAXONE 1 GM VIAL ONE (08:17)
[2022-05-05] MEDS: FLUTICASONE PROPIONATE NASAL SPRAY NS SCH ×2 (09:00→21:01)
[2022-05-05] MEDS: SALMETEROL/FLUTICASONE 250/50 INH SCH ×2 (09:00→18:50)
[2022-05-05] MEDS: AZITHROMYCIN 250 MG TAB PO SCH (09:20)
[2022-05-05] MEDS: CLOPIDOGREL BISULFATE 75 MG TAB PO SCH (09:21)
[2022-05-05] MEDS: LEVOTHYROXINE SODIUM 50 MCG TAB PO SCH (09:21)
[2022-05-05] MEDS: METHYLPREDNISOLONE SOD SUCC 40 MG/ML VIAL 1ML IV SCH ×2 (09:21→20:58)
[2022-05-05] MEDS: LORATADINE 10 MG TAB PO SCH (09:22)
[2022-05-05] MEDS: ASPIRIN 81 MG CHEW TAB PO SCH (09:27)
[2022-05-05] MEDS: METOPROLOL TARTRATE 50 MG TAB PO SCH ×2 (09:29→20:59)
[2022-05-05] MEDS ORDERED: ONDANSETRON HCL 4 MG ORAL DISINTEGRATING TAB PO PRN (10:15)
[2022-05-05] MEDS: CEPACOL SORE THROAT LOZENGES PO PRN (17:13)
[2022-05-05] MEDS: ATORVASTATIN 10 MG TAB PO SCH (20:58)
[2022-05-06] VITALS (7 sets, daily range): BP systolic 133–167; BP diastolic 71–84
[2022-05-06] MEDS: ALBUTEROL/IPRATROPIUM 3 ML NEB NEB SCH ×4 (00:55→19:40)
[2022-05-06 04:57] LABS: BASOPHILS % 0.2 % (0.0-1.0); HEMATOCRIT 28.5 % (34.2-44.1); HEMOGLOBIN 9.7 g/dL (12.0-16.0); LYMPHOCYTES # (AUTO) 0.3 (1.0-3.2); LYMPHOCYTES % 2.4 % (18.0-39.1); MEAN CORPUSCULAR HEMOGLOBIN 29.8 pg (28-32); MEAN CORPUSCULAR VOLUME 87.7 fL (81-99); MONOCYTES # (AUTO) 0.2 (0.2-0.8); MONOCYTES % 1.9 % (4.4-11.3); NEUTROPHILS # (AUTO) 10.5 (2.1-6.9); NEUTROPHILS % 94.5 % (38.7-80.0); PLATELET COUNT 177 x10e3/uL (140-360); RED BLOOD COUNT 3.25 x10e6/uL (3.6-5.1)
[2022-05-06 05:20] LABS: CALCIUM 8.3 mg/dL (8.4-10.2); CREATININE, SERUM 1.04 mg/dL (0.57-1.11)
[2022-05-06] MEDS: CEPACOL SORE THROAT LOZENGES PO PRN (06:10)
[2022-05-06] MEDS: LEVOTHYROXINE SODIUM 50 MCG TAB PO SCH (07:40)
[2022-05-06] MEDS: AZITHROMYCIN 250 MG TAB PO SCH (08:42)
[2022-05-06] MEDS: ASPIRIN 81 MG CHEW TAB PO SCH (08:43)
[2022-05-06] MEDS: CLOPIDOGREL BISULFATE 75 MG TAB PO SCH (08:43)
[2022-05-06] MEDS: METHYLPREDNISOLONE SOD SUCC 40 MG/ML VIAL 1ML IV SCH (08:44)
[2022-05-06] MEDS: METOPROLOL TARTRATE 50 MG TAB PO SCH ×2 (08:44→20:56)
[2022-05-06] MEDS: LORATADINE 10 MG TAB PO SCH (08:44)
[2022-05-06] MEDS: FLUTICASONE PROPIONATE NASAL SPRAY NS SCH ×2 (10:01→20:54)
[2022-05-06] MEDS: SALMETEROL/FLUTICASONE 250/50 INH SCH ×2 (10:30→19:40)
[2022-05-06] MEDS: ATORVASTATIN 10 MG TAB PO SCH (20:56)
[2022-05-06] MEDS: SERTRALINE HCL 50 MG TAB PO SCH (20:56)
[2022-05-07] VITALS: BP 130/70
[2022-05-07] MEDS: ALBUTEROL/IPRATROPIUM 3 ML NEB NEB SCH ×4 (01:00→19:30)
[2022-05-07 04:00] VITALS: BP 130/72
[2022-05-07 04:55] LABS: BASOPHILS % 0.1 % (0.0-1.0); HEMATOCRIT 30.4 % (34.2-44.1); LYMPHOCYTES # (AUTO) 0.6 (1.0-3.2); LYMPHOCYTES % 4.5 % (18.0-39.1); MEAN CORPUSCULAR HEMOGLOBIN 29.5 pg (28-32); MEAN CORPUSCULAR HGB CONC 32.9 g/dL (31-35); MEAN CORPUSCULAR VOLUME 89.7 fL (81-99); MONOCYTES # (AUTO) 0.7 (0.2-0.8); MONOCYTES % 5.7 % (4.4-11.3); NEUTROPHILS # (AUTO) 10.7 (2.1-6.9); NEUTROPHILS % 88.3 % (38.7-80.0); PLATELET COUNT 194 x10e3/uL (140-360); RED BLOOD COUNT 3.39 x10e6/uL (3.6-5.1); RED CELL DISTRIBUTION WIDTH 13.9 % (11.7-14.4)
[2022-05-07 05:13] LABS: ANION GAP 15.5 mmol/L (8-16); CALCIUM 8.4 mg/dL (8.4-10.2); CREATININE, SERUM 1.04 mg/dL (0.57-1.11); POTASSIUM 4.5 mmol/L (3.5-5.1)
[2022-05-07] MEDS: SALMETEROL/FLUTICASONE 250/50 INH SCH ×2 (07:30→19:30)
[2022-05-07 10:00] VITALS: BP 126/78
[2022-05-07] MEDS: METHYLPREDNISOLONE SOD SUCC 40 MG/ML VIAL 1ML IV SCH (10:00)
[2022-05-07] MEDS: ASPIRIN 81 MG CHEW TAB PO SCH (10:00)
[2022-05-07] MEDS: METOPROLOL TARTRATE 50 MG TAB PO SCH ×2 (10:00→21:00)
[2022-05-07] MEDS: LEVOTHYROXINE SODIUM 50 MCG TAB PO SCH (10:00)
[2022-05-07] MEDS: CLOPIDOGREL BISULFATE 75 MG TAB PO SCH (10:00)
[2022-05-07] MEDS: FLUTICASONE PROPIONATE NASAL SPRAY NS SCH ×2 (10:00→22:17)
[2022-05-07] MEDS: AZITHROMYCIN 250 MG TAB PO SCH (10:00)
[2022-05-07] MEDS: LORATADINE 10 MG TAB PO SCH (10:00)
[2022-05-07] MEDS ORDERED: SODIUM CHLORIDE 0.9% 250ML 250 ML ONE (10:51)
[2022-05-07 10:54] VITALS: BP 130/72
[2022-05-07 18:46] VITALS: BP 150/80
[2022-05-07 20:00] VITALS: BP 150/80
[2022-05-07] MEDS: ATORVASTATIN 10 MG TAB PO SCH (22:13)
[2022-05-07] MEDS: SERTRALINE HCL 50 MG TAB PO SCH (22:15)
[2022-05-08] MEDS: ALBUTEROL/IPRATROPIUM 3 ML NEB NEB SCH ×4 (00:30→19:25)
[2022-05-08 05:00] LABS: BASOPHILS % 0.1 % (0.0-1.0); HEMATOCRIT 29.2 % (34.2-44.1); HEMOGLOBIN 10.2 g/dL (12.0-16.0); LYMPHOCYTES # (AUTO) 0.6 (1.0-3.2); LYMPHOCYTES % 5.7 % (18.0-39.1); MEAN CORPUSCULAR HGB CONC 34.9 g/dL (31-35); MEAN CORPUSCULAR VOLUME 85.9 fL (81-99); MONOCYTES # (AUTO) 0.7 (0.2-0.8); NEUTROPHILS # (AUTO) 8.3 (2.1-6.9); NEUTROPHILS % 84.7 % (38.7-80.0); PLATELET COUNT 172 x10e3/uL (140-360); RED CELL DISTRIBUTION WIDTH 14.1 % (11.7-14.4)
[2022-05-08 05:19] LABS: ANION GAP 13.5 mmol/L (8-16); CREATININE, SERUM 0.83 mg/dL (0.57-1.11); POTASSIUM 4.5 mmol/L (3.5-5.1)
[2022-05-08] MEDS: LEVOTHYROXINE SODIUM 50 MCG TAB PO SCH (06:40)
[2022-05-08] MEDS: SALMETEROL/FLUTICASONE 250/50 INH SCH ×2 (07:00→20:53)
[2022-05-08] MEDS: FLUTICASONE PROPIONATE NASAL SPRAY NS SCH ×2 (09:00→20:53)
[2022-05-08] MEDS: METHYLPREDNISOLONE SOD SUCC 40 MG/ML VIAL 1ML IV SCH (09:50)
[2022-05-08] MEDS: LORATADINE 10 MG TAB PO SCH (09:55)
[2022-05-08] MEDS: CLOPIDOGREL BISULFATE 75 MG TAB PO SCH (09:55)
[2022-05-08] MEDS: ASPIRIN 81 MG CHEW TAB PO SCH (09:55)
[2022-05-08] MEDS: METOPROLOL TARTRATE 50 MG TAB PO SCH ×2 (09:55→20:54)
[2022-05-08 12:50] VITALS: BP 142/78
[2022-05-08 20:00] VITALS: BP 163/80
[2022-05-08] MEDS: ATORVASTATIN 10 MG TAB PO SCH (20:54)
[2022-05-08] MEDS: SERTRALINE HCL 50 MG TAB PO SCH (20:55)
[2022-05-09] VITALS: BP 142/73
[2022-05-09] MEDS: ALBUTEROL/IPRATROPIUM 3 ML NEB NEB SCH ×3 (01:40→10:45)
[2022-05-09 03:58] VITALS: BP 142/73
[2022-05-09 04:00] VITALS: BP 178/83
[2022-05-09] MEDS: LEVOTHYROXINE SODIUM 50 MCG TAB PO SCH (08:38)
[2022-05-09] MEDS: LORATADINE 10 MG TAB PO SCH (08:39)
[2022-05-09] MEDS: ASPIRIN 81 MG CHEW TAB PO SCH (08:39)
[2022-05-09] MEDS: METOPROLOL TARTRATE 50 MG TAB PO SCH (08:40)
[2022-05-09] MEDS: FLUTICASONE PROPIONATE NASAL SPRAY NS SCH (08:40)
[2022-05-09] MEDS: CLOPIDOGREL BISULFATE 75 MG TAB PO SCH (08:41)
[2022-05-09 08:44] VITALS: BP 176/80
[2022-05-09 08:55] VITALS: BP 176/80
[2022-05-09] MEDS ORDERED: PREDNISONE 20 MG TAB PO SCH (09:00)
[2022-05-09] MEDS: SALMETEROL/FLUTICASONE 250/50 INH SCH (09:00)
[2022-05-09] MEDS ORDERED: AZITHROMYCIN 250 MG TAB PO SCH (09:00)
[2022-05-09] MEDS ORDERED: AZITHROMYCIN250 MG PO (09:58)
[2022-05-09] MEDS ORDERED: PREDNISONE20 MG PO (09:58)
[2022-05-09] MEDS ORDERED: ONDANSETRON ODT4 MG PO (09:58)
== END 2022-05-09 13:29 | disposition home or self-care (01) | DRG 189 ==
LOC: ER 10:09 → ERHOLD 11:43 → MED/SURG 19:18 → OBSVTOIN 05-05 09:54
PROVIDERS: ADMIT Internal Medicine; ATTEND Internal Medicine
DX: J96.01 Acute respiratory failure with hypoxia (principal); J18.9 Pneumonia, unspecified organism; J44.1 Chronic obstructive pulmonary disease with (acute) exacerbation; J44.0 Chronic obstructive pulmonary disease with (acute) lower respiratory infection; F41.9 Anxiety disorder, unspecified; Z99.81 Dependence on supplemental oxygen; Z88.0 Allergy status to penicillin; Z86.16 Personal history of COVID-19; E03.9 Hypothyroidism, unspecified; Z20.822 Contact with and (suspected) exposure to COVID-19
CPT/HCPCS: 0223U; 36415; 71045; 80048; 80053; 83605; 85025; 87040; 87071; 87205; 93005; 94640; 94664; 94799; 99251; 99284; G0378; J0696; J2920; J7030; J7050; J7512

== ENCOUNTER 2022-12-26 03:27 | Inpatient (IN) | payer MEDICARE ==
[~2022-12-26] VITALS: Ht 165.1 cm; Wt 67.1 kg
[2022-12-26] VITALS (11 sets, daily range): BP systolic 136–163; BP diastolic 58–79
[~2022-12-26 03:27] MED LIST changes: +AZITHROMYCIN250 MG PO; +COMBIVENT RESPIM4 GM INH; +FLUTICASONE PRO16 GM INH; +FLUTICASONE-SA1 EAC1 INH; +METOPROLOL TART50 MG PO; +ONDANSETRON ODT4 MG PO; +SPIRIVA RESPIMAT4 GM
[2022-12-26] MEDS ORDERED: IPRATROPIUM BROMIDE 0.02% 2.5 ML NEB NEB ONE (03:30)
[2022-12-26] MEDS ORDERED: METHYLPREDNISOLONE SOD SUCC 125 MG/2ML VIAL IV ONE (03:30)
[2022-12-26] MEDS ORDERED: ALBUTEROL SULF 0.083% NEB SOLN 3 ML NEB NEB STA (03:30)
[2022-12-26] MEDS ORDERED: ALBUTEROL SULF 0.083% NEB SOLN 3 ML NEB ONE (03:35)
[2022-12-26] MEDS ORDERED: IPRATROPIUM BROMIDE 0.02% 2.5 ML NEB ONE (03:35)
[2022-12-26] MEDS ORDERED: LEVOFLOXACIN 500MG/D5W 100ML 100 ML IV ONE (03:45)
[2022-12-26 03:53] LABS: BASOPHILS % 0.1 % (0.0-1.0); EOSINOPHILS % 0.1 % (0.0-6.0); HEMATOCRIT 32.5 % (34.2-44.1); HEMOGLOBIN 10.5 g/dL (12.0-16.0); LYMPHOCYTES # (AUTO) 0.5 (1.0-3.2); LYMPHOCYTES % 6.3 % (18.0-39.1); MEAN CORPUSCULAR HEMOGLOBIN 28.6 pg (28-32); MEAN CORPUSCULAR HGB CONC 32.3 g/dL (31-35); MEAN CORPUSCULAR VOLUME 88.6 fL (81-99); MONOCYTES # (AUTO) 0.5 (0.2-0.8); MONOCYTES % 6.1 % (4.4-11.3); NEUTROPHILS # (AUTO) 6.7 (2.1-6.9); NEUTROPHILS % 86.8 % (38.7-80.0); PLATELET COUNT 190 x10e3/uL (140-360); RED BLOOD COUNT 3.67 x10e6/uL (3.6-5.1); RED CELL DISTRIBUTION WIDTH 14.9 % (11.7-14.4)
[2022-12-26 04:07] LABS: ALBUMIN 3.6 g/dL (3.5-5.0); ALBUMIN/GLOBULIN RATIO 1.2 (0.8-2.0); ANION GAP 14.8 mmol/L (8-16); CALCIUM 8.6 mg/dL (8.4-10.2); CREATININE, SERUM 1.38 mg/dL (0.57-1.11); POTASSIUM 3.8 mmol/L (3.5-5.1)
[2022-12-26 04:14] LABS: CREATINE KINASE MB 2.1 ng/mL (0-5.0)
[2022-12-26 04:15] LABS: B-TYPE NATRIURETIC PEPTIDE2 2789.6 pg/mL (0-100)
[2022-12-26] MEDS ORDERED: FUROSEMIDE INJ 10 MG/ML 4 ML VIAL IV ONE (04:45)
[2022-12-26] MEDS ORDERED: ALBUTEROL/IPRATROPIUM 3 ML NEB NEB SCH (07:00)
[2022-12-26] MEDS: ALBUTEROL SULF 0.083% NEB SOLN 3 ML NEB NEB SCH ×5 (07:00→23:00)
[2022-12-26] MEDS: IPRATROPIUM BROMIDE 0.02% 2.5 ML NEB NEB SCH ×5 (07:00→23:00)
[2022-12-26] MEDS: METHYLPREDNISOLONE SOD SUCC 40 MG/ML VIAL 1ML IV SCH ×3 (10:33→21:50)
[2022-12-26 12:14] LABS: CREATINE KINASE MB 2.7 ng/mL (0-5.0)
[2022-12-26] MEDS: METOPROLOL TARTRATE 25 MG TAB PO SCH (16:48)
[2022-12-26] MEDS ORDERED: METOPROLOL TARTRATE 50 MG TAB PO SCH (17:00)
[2022-12-26] MEDS: ATORVASTATIN 10 MG TAB PO SCH (21:07)
[2022-12-26] MEDS: CEPACOL SORE THROAT LOZENGES PO PRN (21:50)
[2022-12-26 22:24] LABS: CREATINE KINASE MB 4.3 ng/mL (0-5.0)
[2022-12-27] VITALS (26 sets, daily range): BP systolic 109–213; BP diastolic 63–193
[2022-12-27] MEDS: LEVOFLOXACIN 500MG/D5W 100ML 100 ML IV SCH (03:08)
[2022-12-27] MEDS: IPRATROPIUM BROMIDE 0.02% 2.5 ML NEB NEB SCH ×3 (03:08→12:27)
[2022-12-27] MEDS: ALBUTEROL SULF 0.083% NEB SOLN 3 ML NEB NEB SCH ×3 (03:08→12:27)
[2022-12-27] MEDS: METHYLPREDNISOLONE SOD SUCC 40 MG/ML VIAL 1ML IV SCH ×3 (04:21→20:22)
[2022-12-27] MEDS: LEVOTHYROXINE SODIUM 50 MCG TAB PO SCH (05:13)
[2022-12-27 05:38] LABS: HEMATOCRIT 29.3 % (34.2-44.1); HEMOGLOBIN 9.5 g/dL (12.0-16.0); LYMPHOCYTES # (AUTO) 0.2 (1.0-3.2); LYMPHOCYTES % 1.9 % (18.0-39.1); MEAN CORPUSCULAR HEMOGLOBIN 28.7 pg (28-32); MEAN CORPUSCULAR HGB CONC 32.4 g/dL (31-35); MEAN CORPUSCULAR VOLUME 88.5 fL (81-99); MONOCYTES # (AUTO) 0.2 (0.2-0.8); MONOCYTES % 1.8 % (4.4-11.3); NEUTROPHILS # (AUTO) 8.5 (2.1-6.9); NEUTROPHILS % 95.5 % (38.7-80.0); PLATELET COUNT 155 x10e3/uL (140-360); RED BLOOD COUNT 3.31 x10e6/uL (3.6-5.1); RED CELL DISTRIBUTION WIDTH 14.3 % (11.7-14.4)
[2022-12-27 06:04] LABS: ALBUMIN 3.4 g/dL (3.5-5.0); ALBUMIN/GLOBULIN RATIO 1.2 (0.8-2.0); ANION GAP 14.9 mmol/L (8-16); CALCIUM 8.4 mg/dL (8.4-10.2); CREATININE, SERUM 1.37 mg/dL (0.57-1.11); POTASSIUM 3.9 mmol/L (3.5-5.1)
[2022-12-27] MEDS ORDERED: ALBUTEROL SULFATE HFA 8GM INHALATION AEROSOL INH PRN (08:15)
[2022-12-27] MEDS: ASPIRIN 81 MG CHEW TAB PO SCH (08:17)
[2022-12-27] MEDS: CLOPIDOGREL BISULFATE 75 MG TAB PO SCH (08:18)
[2022-12-27] MEDS: SERTRALINE HCL 50 MG TAB PO SCH (08:18)
[2022-12-27] MEDS: AMLODIPINE BESYLATE 5 MG TAB PO SCH (08:18)
[2022-12-27] MEDS: METOPROLOL TARTRATE 25 MG TAB PO SCH ×2 (08:18→17:15)
[2022-12-27] MEDS: CEPACOL SORE THROAT LOZENGES PO PRN (08:50)
[2022-12-27] MEDS: TIOTROPIUM 18 MCG INH POWDER INH SCH (09:00)
[2022-12-27] MEDS: FLUTICASONE PROPIONATE NASAL SPRAY NS SCH ×2 (09:00→17:17)
[2022-12-27] MEDS: SALMETEROL/FLUTICASONE 250/50 INH SCH ×2 (09:00→19:00)
[2022-12-27] MEDS ORDERED: CEPACOL SORE THROAT LOZENGES PO PRN (14:15)
[2022-12-27] MEDS ORDERED: CEPACOL SORE THROAT LOZENGES PO ONE (14:30)
[2022-12-27] MEDS: ATORVASTATIN 10 MG TAB PO SCH (20:22)
[2022-12-28] VITALS (19 sets, daily range): BP systolic 110–161; BP diastolic 59–107
[2022-12-28] MEDS: LEVOFLOXACIN 500MG/D5W 100ML 100 ML IV SCH (03:06)
[2022-12-28 04:53] LABS: BASOPHILS % 0.1 % (0.0-1.0); EOSINOPHILS % 0.2 % (0.0-6.0); HEMATOCRIT 30.3 % (34.2-44.1); HEMOGLOBIN 9.4 g/dL (12.0-16.0); LYMPHOCYTES # (AUTO) 0.2 (1.0-3.2); LYMPHOCYTES % 1.3 % (18.0-39.1); MEAN CORPUSCULAR VOLUME 90.2 fL (81-99); MONOCYTES # (AUTO) 0.4 (0.2-0.8); MONOCYTES % 2.5 % (4.4-11.3); NEUTROPHILS % 94.4 % (38.7-80.0); PLATELET COUNT 167 x10e3/uL (140-360); RED BLOOD COUNT 3.36 x10e6/uL (3.6-5.1); RED CELL DISTRIBUTION WIDTH 14.7 % (11.7-14.4)
[2022-12-28 05:19] LABS: ALBUMIN 3.1 g/dL (3.5-5.0); ALBUMIN/GLOBULIN RATIO 1.1 (0.8-2.0); ANION GAP 11.8 mmol/L (8-16); CALCIUM 8.1 mg/dL (8.4-10.2); CREATININE, SERUM 1.35 mg/dL (0.57-1.11); POTASSIUM 4.8 mmol/L (3.5-5.1)
[2022-12-28] MEDS: TIOTROPIUM 18 MCG INH POWDER INH SCH ×2 (05:27→05:31)
[2022-12-28] MEDS: LEVOTHYROXINE SODIUM 50 MCG TAB PO SCH (05:27)
[2022-12-28] MEDS: SALMETEROL/FLUTICASONE 250/50 INH SCH ×3 (05:28→19:00)
[2022-12-28] MEDS: AMLODIPINE BESYLATE 5 MG TAB PO SCH (09:46)
[2022-12-28] MEDS: METHYLPREDNISOLONE SOD SUCC 40 MG/ML VIAL 1ML IV SCH (09:46)
[2022-12-28] MEDS: CLOPIDOGREL BISULFATE 75 MG TAB PO SCH (09:46)
[2022-12-28] MEDS: METOPROLOL TARTRATE 25 MG TAB PO SCH ×2 (09:47→17:01)
[2022-12-28] MEDS: SERTRALINE HCL 50 MG TAB PO SCH (09:47)
[2022-12-28] MEDS: ASPIRIN 81 MG CHEW TAB PO SCH (09:47)
[2022-12-28] MEDS: FLUTICASONE PROPIONATE NASAL SPRAY NS SCH ×2 (09:48→17:04)
[2022-12-28] MEDS ORDERED: LACTATED RINGER'S 1,000 ML INJ ONE (16:45)
[2022-12-28] MEDS: ATORVASTATIN 10 MG TAB PO SCH (20:20)
[2022-12-28] MEDS ORDERED: METHYLPREDNISOLONE SOD SUCC 40 MG/ML VIAL 1ML IV SCH (21:00)
[2022-12-29 00:44] VITALS: BP 130/76
[2022-12-29] MEDS: LEVOFLOXACIN 500MG/D5W 100ML 100 ML IV SCH ×2 (03:30→05:10)
[2022-12-29] MEDS: LEVOTHYROXINE SODIUM 50 MCG TAB PO SCH ×2 (05:13→06:00)
[2022-12-29] MEDS: TIOTROPIUM 18 MCG INH POWDER INH SCH ×2 (05:13→06:00)
[2022-12-29 05:29] LABS: ANION GAP 12.6 mmol/L (8-16); CALCIUM 7.9 mg/dL (8.4-10.2); CREATININE, SERUM 1.31 mg/dL (0.57-1.11); POTASSIUM 4.6 mmol/L (3.5-5.1)
[2022-12-29] MEDS ORDERED: SORE THROAT LO1 EAC3 PO (06:45)
[2022-12-29] MEDS ORDERED: LOPRESSOR25 MG PO (06:45)
[2022-12-29] MEDS ORDERED: PREDNISONE5 MG PO (06:45)
[2022-12-29] MEDS ORDERED: SPIRIVA18 MCG INH (06:45)
[2022-12-29] MEDS ORDERED: LEVOFLOXACIN250 MG PO (06:45)
[2022-12-29] MEDS: SALMETEROL/FLUTICASONE 250/50 INH SCH (07:00)
[2022-12-29 08:51] VITALS: BP 125/81
[2022-12-29] MEDS ORDERED: METHYLPREDNISOLONE SOD SUCC 40 MG/ML VIAL 1ML IV SCH (09:00)
[2022-12-29] MEDS: METOPROLOL TARTRATE 25 MG TAB PO SCH (09:20)
[2022-12-29] MEDS: AMLODIPINE BESYLATE 5 MG TAB PO SCH (09:20)
[2022-12-29] MEDS: SERTRALINE HCL 50 MG TAB PO SCH (09:20)
[2022-12-29] MEDS: ASPIRIN 81 MG CHEW TAB PO SCH (09:20)
[2022-12-29] MEDS: CLOPIDOGREL BISULFATE 75 MG TAB PO SCH (09:20)
[2022-12-29 12:43] VITALS: BP 145/83
[2022-12-29 16:32] VITALS: BP 138/74
[2022-12-30] MEDS ORDERED: LEVOFLOXACIN 500 MG TAB PO SCH (09:00)
== END 2022-12-29 17:04 | DRG 190 ==
LOC: ER 03:35 → ERHOLD 04:40 → ICU 17:30 → MED/SURG 12-28 22:52
PROVIDERS: ADMIT Internal Medicine; ATTEND Internal Medicine
PROC: 5A09357 Assistance with Respiratory Ventilation, Less than 24 Consecutive Hours, Continuous Positive Airway Pressure (ICD-10-PCS; principal; 2022-12-26)
DX: J43.9 Emphysema, unspecified (principal); I50.33 Acute on chronic diastolic (congestive) heart failure; J96.01 Acute respiratory failure with hypoxia; N17.9 Acute kidney failure, unspecified; F41.9 Anxiety disorder, unspecified; E78.5 Hyperlipidemia, unspecified; E03.9 Hypothyroidism, unspecified; D64.9 Anemia, unspecified; K43.9 Ventral hernia without obstruction or gangrene; D72.829 Elevated white blood cell count, unspecified; I11.0 Hypertensive heart disease with heart failure; Z99.81 Dependence on supplemental oxygen; Z20.822 Contact with and (suspected) exposure to COVID-19; Z88.0 Allergy status to penicillin; Z87.891 Personal history of nicotine dependence; Z86.16 Personal history of COVID-19; Z79.02 Long term (current) use of antithrombotics/antiplatelets; Z86.73 Personal history of transient ischemic attack (TIA), and cerebral infarction without residual deficits
CPT/HCPCS: 36415; 71045; 71250; 76770; 80048; 80053; 82550; 82553; 83605; 83880; 84484; 85025; 87040; 93005; 93306; 94640; 94660; 94799; 99285; J1940; J1956; J2920; J2930